=== PATIENT | female | born 1940 | race Caucasian/White ===

== ENCOUNTER → 2016-08-16 | Outpatient (CLI) | payer MEDICARE ==
[2016-08-16 09:42] LABS: BASOPHILS % (AUTO) 1 % (0-2); EOSINOPHILS # (AUTO) 0.2 10^3uL; EOSINOPHILS % (AUTO) 4 % (0-4); LYMPHOCYTES # (AUTO) 1.7 X10^3; MEAN CORPUSCULAR HEMOGLOBIN 29.3 PG (26.0-34.0); MEAN CORPUSCULAR HGB CONC 34.9 g/dL (31.0-37.0); MEAN CORPUSCULAR VOLUME 84 FL (80-100); MEAN PLATELET VOLUME 10.2 FL (6.0-9.5); MONOCYTES # (AUTO) 0.4 X10^3; MONOCYTES % (AUTO) 7 % (3-11); NEUTROPHILS # (AUTO) 3.4 X10^3; NEUTROPHILS % (AUTO) 59 % (51-67); PLATELET COUNT 287 10^3uL (150-450)
[2016-08-16 10:00] LABS: ALBUMIN 4.1 g/dL (3.4-5.0); ANION GAP 14.5 MEQ/L (3-15); CALCULATED IONIZED CALCIUM 4.3 mg/dL (3.8-4.6); TOTAL PROTEIN 7.1 g/dL (6.4-8.5)
[2016-08-18 23:30] LABS: CA 27.29 C <12.0 U/mL (<=38.0)
== END ==
LOC: LAB 09:27
PROVIDERS: ATTEND Internal Medicine Hematology & Oncology
DX: C50.411 Malignant neoplasm of upper-outer quadrant of right female breast (principal)
CPT/HCPCS: 36415; 80053; 82306; 82378; 85025; 86300

== ENCOUNTER 2016-08-24 11:32 | Emergency (ER) | payer MEDICARE ==
[~2016-08-24] VITALS: Ht 165.1 cm; Wt 103.6 kg
[2016-08-24] MEDS ORDERED: SODIUM CHLORIDE FLUSH 10 ML SYR IV PRN (12:10)
[2016-08-24] MEDS ORDERED: ACETAMINOPHEN 500 MG TAB (TYLENOL) PO ONE (12:10)
[2016-08-24] MEDS ORDERED: PROMETHAZINE HCL INJ 12.5 MG in SODIUM CHLORIDE 25 ML IV ONE (12:10)
[2016-08-24] MEDS ORDERED: SODIUM CHLORIDE FLUSH 3 ML SYR IV PRN (12:10)
[2016-08-24] MEDS ORDERED: NS IV 500 ML 500 ML IV SCH (12:10)
--- NOTE | 2016-08-24 12:15 | NUR ---
12.5 mg of Phenergan in 25 ml of NS started at 50 ml/hr.
[2016-08-24 12:38] LABS: BASOPHILS % (AUTO) 1 % (0-2); EOSINOPHILS # (AUTO) 0.1 10^3uL; EOSINOPHILS % (AUTO) 2 % (0-4); LYMPHOCYTES # (AUTO) 1.3 X10^3; MEAN CORPUSCULAR HGB CONC 34.3 g/dL (31.0-37.0); MEAN CORPUSCULAR VOLUME 85 FL (80-100); MEAN PLATELET VOLUME 10.7 FL (6.0-9.5); MONOCYTES # (AUTO) 0.5 X10^3; MONOCYTES % (AUTO) 7 % (3-11); NEUTROPHILS # (AUTO) 5.1 X10^3; NEUTROPHILS % (AUTO) 73 % (51-67); PLATELET COUNT 276 10^3uL (150-450); WHITE BLOOD COUNT 7.05 10^3uL (4.0-11.0)
[2016-08-24 12:43] LABS: ALBUMIN 4.2 g/dL (3.4-5.0); ANION GAP 13.4 MEQ/L (3-15); CALCULATED IONIZED CALCIUM 4.3 mg/dL (3.8-4.6); TOTAL PROTEIN 7.4 g/dL (6.4-8.5)
[2016-08-24] MEDS ORDERED: cloNIDine 0.1 MG (CATAPRES) TAB PO ONE (13:05)
--- NOTE | 2016-08-24 13:20 | NUR ---
DR HAIDER STATES TO HOLD TYLENOL PO UNTIL PT NO LONGER NAUSEATED. PT NOW NOT NAUSEATED & DR HAIDER NOTIFIED. CL
--- NOTE | 2016-08-24 13:20 | NUR ---
Patient given 0.1 mg of clonadine PO perphysician order.
[2016-08-24] MEDS ORDERED: ACETAMINOPHEN 500 MG TAB (TYLENOL) ONE (13:23)
--- NOTE | 2016-08-24 13:50 | NUR ---
Patient up out of bed amd ambulated to toilet to void. Patient was stready on her feet and denied her feeling of her head spinning.
--- NOTE | 2016-08-24 14:22 | NUR ---
500 ml normal saline bolus started at 350 ml/hr to left hand site.
[2016-08-24] MEDS ORDERED: SODIUM CHLORIDE 250 ML IV SCH (14:45)
--- NOTE | 2016-08-24 14:50 | NUR ---
DR HAIDER STATES TO HOLD IV BOLUS BP 112/52 AT THIS TIME. CL
[2016-08-24 20:19] VITALS: BP 131/44
== END 2016-08-24 15:53 | disposition home or self-care (01) ==
LOC: ED 11:34
DX: R51 Headache (principal); R42 Dizziness and giddiness; R03.0 Elevated blood-pressure reading, without diagnosis of hypertension; C50.911 Malignant neoplasm of unspecified site of right female breast; Z79.811 Long term (current) use of aromatase inhibitors
CPT/HCPCS: 36415; 70450; 80053; 85025; 86140; 96374; 99285; A9270; J2550; J7040; 99283

== ENCOUNTER → 2016-08-26 | Outpatient (REF) | payer MEDICARE | LOC: LAB 09:06 | PROVIDERS: ATTEND Family Medicine | DX: I10 Essential (primary) hypertension (principal) | CPT/HCPCS: 80061 ==